=== PATIENT | male | born 1955 | race Caucasian/White ===

== ENCOUNTER 2020-04-22 07:52 | Emergency (ER) | payer MEDICAID, OTHER ==
[~2020-04-22] VITALS: Ht 175.3 cm; Wt 70.4 kg
[2020-04-22 07:55] VITALS: BP 158/92
== END 2020-04-22 08:36 | disposition home or self-care (01) ==
LOC: ED 08:09
DX: I10 Essential (primary) hypertension (principal); Z76.0 Encounter for issue of repeat prescription
CPT/HCPCS: 99281

== ENCOUNTER 2020-05-27 10:53 | Emergency (ER) | payer MEDICARE, MEDICAID ==
[~2020-05-27] VITALS: Ht 175.3 cm; Wt 72.0 kg
[2020-05-27 10:55] VITALS: BP 148/94
[2020-05-27] MEDS ORDERED: PIPERONYL BUTOXIDE/PYRETHRINS SHAMPOO ONE (11:01)
--- NOTE | 2020-05-27 11:05 | NUR ---
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
[2020-05-27] MEDS ORDERED: TAMSULOSIN 0.4 MG CAP.ER.24H ONE (11:58)
[2020-05-27] MEDS ORDERED: TAMSULOSIN 0.4 MG CAP.ER.24H PO ONE (12:00)
--- NOTE | 2020-05-27 12:32 | NUR ---
PT AMBULATED TO RESTROOM WITH STEADY GAIT. PT REPORTS BEING ABLE TO URINATE WELL.
== END 2020-05-27 12:58 | disposition home or self-care (01) ==
LOC: ED 12:03
DX: N40.0 Benign prostatic hyperplasia without lower urinary tract symptoms (principal); Z76.0 Encounter for issue of repeat prescription; F10.129 Alcohol abuse with intoxication, unspecified; Y90.9 Presence of alcohol in blood, level not specified
CPT/HCPCS: 99281; 99283